=== PATIENT | male | born 1960 | race Caucasian/White ===

== ENCOUNTER 2024-12-23 07:03 | Day surgery (SDC) | payer MEDICARE, SELFPAY ==
[2024-12-23] VITALS (8 sets, daily range): BP systolic 105–139; BP diastolic 48–79
[2024-12-23 08:44] LABS: ALT (SGPT) 32 U/L (0-50); AST (SGOT) 34 U/L (17-59); Alkaline Phosphatase 74 U/L (38-126); Blood Urea Nitrogen 20 mg/dl (9-20); Calcium 9.1 mg/dl (8.4-10.2); Carbon Dioxide 34 mmol/L (22-30); Chloride 100 mmol/L (98-107); Glucose 157 mg/dl (70-99); Potassium 4.6 mmol/L (3.5-5.1); Sodium 140 mmol/L (135-145); Total Bilirubin 0.8 mg/dl (0.2-1.3); Total Protein 6.8 g/dl (6.3-8.2); eGFR > 60.00
--- NOTE | 2024-12-23 18:20 | ITS.CL.PN ---
[facility] - Procedure Note
Procedure
Procedure Note:
CARDIAC CATHETERIZATION REPORT
Date of Procedure: 12/23/2024
Referring: Dr. Hira miranda MD
Indication: typical anginal chest pain despite antianginal medication, positive cardiac stress test
PROCEDURE(S)
1. left heart catheterization
2. coronary angiography
3. bypass graft angiography
ACCESS: 6F left radial artery (closure: radial band)
CATHETERS
1. 6F SARITA
2. 6F JR4
3. 6F JL3.5
MODERATE SEDATION: 30 minutes of moderate sedation was utilized. An independent ophthalmic medical technologist was present to assist with and help manage the patient's level of consciousness and physiologic status.
HEMODYNAMIC DATA
LV 112/12 (EDP 22) mmHg
AO 114/66 (mean 88) mmHg
CORONARY ANGIOGRAPHY
Dominance: Right
LM: Moderate caliber vessel without significant disease.
LAD: Subtotally occluded proximally with the mid to distal vessel supplied via the patent RUSH to LAD and SVG to diagonal.
LCx: Moderate caliber vessel giving rise to a single branching marginal. The inferior limb of the marginal branch has a 50% stenosis proximally.
RCA: Large vessel giving rise to a large RPDA and moderate caliber RPL branch. The vessel is totally occluded just before the crux. There is a widely patent stent in the mid vessel. The VACUUM APPLICATOR OPERATOR appears to be short, straight, and minimally calcified with
a tapered proximal end.
BYPASS GRAFT ANGIOGRAPHY:
RUSH-LAD: the RUSH is taken as a pedicle and forms an anastomosis with the mid-LAD providing antegrade flow to the apex
SVG-diagonal: widely patent forming a distal anastomosis with the diagonal branch
SVG-RPDA: totally occluded proximally
RADIATION: dose 1467.21 mGy; DAP 92.2636 Gy*cm2; fluoroscopy time 18 min
CONCLUSIONS
1. Coronary artery disease as described with patent RUSH-LAD and SVG-diagonal but occluded SVG-RPDA with collaterals to the RPDA and RPL branches from the grafted RUSH and diagonal respectively.
2. Moderately elevated LV filling pressure and no aortic stenosis
RECOMMENDATIONS
1. Aggressive secondary prevention of coronary artery disease
2. Optimization of antianginal medications
3. Should patient continue to have angina refractory to medical therapy, antegrade wire escalation VACUUM APPLICATOR OPERATOR PCI of the RPDA and RPL bifurcation would be reasonable. This would be approached with dual access to allow retrograde injection of the RPDA from
the RUSH-LAD. If initial antegrade approach were to fail, reattempt with antegrade dissection reentry or retrograde approach could be considered by a dedicated VACUUM APPLICATOR OPERATOR kelly machine operator, although retrograde would be high risk given need to utilize the RUSH and
epicardial collaterals.
Copy to: Dr. Hira Miranda MD (personnel security assistant); Dr. Milagros Aguirre DO (PCP)
Signed: Man Mg MD, PhD
== END 2024-12-23 16:05 | disposition home or self-care (01) ==
LOC: CATH 07:03
PROVIDERS: ATTENDING PHYSICIAN Student in an Organized Health Care Education/Training Program; FAMILY PHYSICIAN Family Medicine; OTHER PHYSICIAN Internal Medicine Cardiovascular Disease
DX: I25.118 Atherosclerotic heart disease of native coronary artery with other forms of angina pectoris (principal); I25.810 Atherosclerosis of coronary artery bypass graft(s) without angina pectoris; I25.2 Old myocardial infarction; I12.9 Hypertensive chronic kidney disease with stage 1 through stage 4 chronic kidney disease, or unspecified chronic kidney disease; N18.2 Chronic kidney disease, stage 2 (mild); E78.5 Hyperlipidemia, unspecified; E11.9 Type 2 diabetes mellitus without complications; G47.33 Obstructive sleep apnea (adult) (pediatric); Z79.82 Long term (current) use of aspirin; Z79.84 Long term (current) use of oral hypoglycemic drugs
CPT/HCPCS: 99152; 99153; 80053; 93459; C1894; Q9967